=== PATIENT | female | born 1945 | race Caucasian/White ===

== ENCOUNTER 2018-04-30 18:17 | Observation (INO) ==
--- NOTE | 2018-04-30 19:21 | ED ---
HPI General Chief complaint: Chest Pain Stated complaint: chest pain/nausea Time Seen by Provider: 04/30/18 19:19 History of Present Illness HPI narrative: The patient is a 72 year old female who presents to the [facility] emergency department with a history of chest pain that began just after eating lunch at 1 PM. The pain is a pressure sensation. She has a h/o hypertension, hyperlipidemia, and diabetes. She has not checked her blood sugar today. She reports that she has been urinating more frequently, however she denies any dysuria, hematuria, or urinary urgency the patient reports that she does have a history of nausea, vomiting, and diarrhea that began at around 130 to 2 PM. She denies having any mucus or blood in her stool. She denies having any hematemesis. The patient reports on review of systems that she does have a lingering cough related to bronchitis. She reports that she was on Augmentin and a steroid taper pack recently for this. She is also on and a rescue inhaler as needed. She has a remote history of smoking as an 19-year- old. Otherwise on review of systems, the patient denies having any known fevers , however she has had chills, she denies having any neck pain, abdominal pain, or neurologic symptoms. Onset (ago): hour(s) Radiation: back Severity: severe Severity scale (1-10): 9 Quality: other (pressure sensation) Pain Consistency: intermittent Relieving factors: none Exacerbating factors: none Associated symptoms: diaphoresis, nausea/vomiting (x7), shortness of breath and other (diarrhea 1:30- 2PM- 4-5 x, stool is light brown) Related Data Home Medications Medication Instructions Recorded Confirmed aspirin [Aspirin Low Dose] 81 mg PO DAILY 04/30/18 04/30/18 celecoxib [Celebrex] 200 mg PO DAILY 04/30/18 04/30/18 cholecalciferol (vitamin D3) 5,000 unit PO DAILY 04/30/18 04/30/18 [Vitamin D3] dexlansoprazole [Dexilant] 30 mg PO DAILY 04/30/18 04/30/18 ezetimibe [Zetia] 10 mg PO DAILY 04/30/18 04/30/18 fish,bora,flax oils-[id number] 1 cap PO DAILY 04/30/18 04/30/18 [[place] 3-6-9] glimepiride 1 mg PO QAM 04/30/18 04/30/18 levalbuterol tartrate [Xopenex HFA] 2 puff INHALATION DAILY 04/30/18 04/30/18 loratadine [Claritin] 10 mg PO DAILY 04/30/18 04/30/18 losartan 25 mg PO HS 04/30/18 04/30/18 magnesium 200 mg PO DAILY 04/30/18 04/30/18 Previous Rx's Medication Instructions Recorded metoprolol succinate [Toprol XL] 100 mg PO DAILY #0 tab 05/01/18 Allergies Allergy/AdvReac Type Severity Reaction Status Date / Time heparin Allergy Severe Hypotension Verified 04/30/18 18:40 Review of Systems Except as stated in HPI: all other systems reviewed are negative Constitutional Denies fever(s) Eyes Denies change in vision ENT Denies headache(s) and Denies nasal congestion Cardiovascular Denies chest pain Respiratory Denies dyspnea Gastrointestinal Denies abdominal pain Genitourinary Denies difficulty voiding Musculoskeletal Denies myalgias Integumentary/Breasts Denies rash Neurologic Denies headache(s) Psychiatric Denies depression Endocrine Denies polyuria Hematologic/Lymphatic Denies easy bruising [facility] Medical History Medical History Cholecystectomy planned (Acute) Diabetes mellitus type II, controlled (Acute) GERD (gastroesophageal reflux disease) (Acute) H/O: hysterectomy (Acute) HTN (hypertension) (Acute) High blood cholesterol (Acute) RSD (reflex sympathetic dystrophy) (Acute) Surgical History Surgical History History of lumbar surgery (Acute) Social History Social History Substance History: No History of Abuse Second Hand Smoke Exposure: No Smoking Status: Former smoker How Often Do You Have a Drink Containing Alcohol: 2 to 4 times a month Recent Travel in [facility] within the Last 8 Weeks: No Recent Out of Country Travel within the Last 8 Weeks: No Immunization History Tetanus Immunization: <5 Years Hx Influenza Vaccine This Season: Yes Exam Const General: cooperative and no acute distress HENMT Head: normocephalic and atraumatic Nose: no nasal discharge and no epistaxis Mouth: moist mucous membranes Eyes Sclera: normal sclerae Pupils: PERRL Neck Neck: trachea midline and no JVD Resp Effort & Inspection: no use of accessory muscles Auscultation: clear to auscultation bilaterally Cardio Rate: regular rate and tachycardic Rhythm: regular rhythm Heart Sounds: no gallops, no murmurs and no rubs GI Inspection: non-distended Palpation: soft, no hepatosplenomegaly and nontender Skin General: dry skin (warm) Neuro General: alert and awake Cranial Nerves: other Speech: speech normal Motor: no movement abnormalities noted Extrem General: normal to inspection, no clubbing, no cyanosis and no edema Psych Mood: congruent mood Affect: normal affect Judgment: judgment good Course Hospital Course: During the course of the patient's emergency department visit, the patient's history, examination, and differential diagnosis were reviewed with the patient. The patient was placed on a resident services manager with oximetry and frequent blood pressure monitoring. The patient had IV access obtained and blood work sent for analysis. The patient was initially provided normal saline 1 L IV fluid bolus. The patient was given sublingual nitroglycerin 1, nitroglycerin 1 inch the chest wall, aspirin 324 mg p.o. 1. Reevaluation(s) Reevaluation #1: The patient reportedly feeling improved. She has not had any further episodes of diarrhea. Consultations Consultation #1: The patient's case including history, pertinent physical examination findings, and laboratory studies were discussed with Dr. Helms. It was agreed that the patient would be admitted to the hospitalist service. Time: 01:04 Initial Documented Vital Signs Temperature 98.4 F 04/30/18 18:24 Pulse Rate 125 H 04/30/18 18:24 Respiratory Rate 16 04/30/18 18:24 Blood Pressure 126/78 04/30/18 18:24 Pulse Oximetry 96 04/30/18 18:24 Last Documented Vital Signs Temperature 98.4 F 04/30/18 18:24 Pulse Rate 85 05/01/18 05:30 Respiratory Rate 18 05/01/18 04:40 Blood Pressure 100/51 L 05/01/18 04:40 Pulse Oximetry 94 L 05/01/18 04:40 Medical Decision Making MDM Narrative Medical decision making narrative: The patient's diagnostic testing is remarkable for a hemoglobin of 13.3, with a left shift of 92.9. D-dimer elevated at 1.81, therefore CTA to rule out PE was ordered. CMP is remarkable for total bilirubin of 2.2, direct bilirubin 0.9, glucose 200, GFR of 64, AST 270, alk phos 134, ALT 131. The patient's lipase is within normal limits. Initial set of cardiac enzymes are negative. Cardiac enzymes are within normal limits. The patient's chest x-ray showed no acute cardiopulmonary disease. CTA to rule out pulmonary embolism shows no evidence of pulmonary embolism. CT scan of the abdomen and pelvis shows no acute abnormality. The patient will be admitted to the hospitalist service for rule out serial cardiac enzyme protocol given the patient's chest pain. The patient will also be evaluated for nausea, vomiting, diarrhea, C. difficile colitis will be ruled out by C. difficile toxin given her recent antibiotic use. Differential Diagnosis Differential Diagnosis: Acute coronary syndrome, versus pulmonary embolism, versus acid reflux, versus C. difficile colitis Medical Records Medical records reviewed: Yes I reviewed the patient's medical records. Lab Data Result diagrams: 04/30/18 19:40 04/30/18 19:40 Lab Results 04/30/18 04/30/18 04/30/18 Range/Units 19:40 19:40 19:40 WBC 13.3 H (4.0-11.0) th/mm3 RBC 4.78 (4.00-5.30) mil/mm3 Hgb 15.0 (11.6-15.3) gm/dL Hct 44.9 (35.0-46.0) % MCV 93.9 (80.0-100.0) fL MCH 31.3 (27.0-34.0) pg MCHC 33.3 (32.0-36.0) % RDW 14.5 (11.6-17.2) % Plt Count 200 (150-450) th/mm3 MPV 9.3 (7.0-11.0) fL Neut % (Auto) 92.9 H (16.0-70.0) % Lymph % (Auto) 2.9 L (9.0-44.0) % [place] % (Auto) 3.9 (0.0-8.0) % Eos % (Auto) 0.1 (0.0-4.0) % Baso % (Auto) 0.2 (0.0-2.0) % Neut # (Auto) 12.3 H (1.8-7.7) th/mm3 Lymph # (Auto) 0.4 L (1.0-4.8) th/mm3 [place] # (Auto) 0.5 (0.0-0.9) th/mm3 Eos # (Auto) 0.0 (0.0-0.4) th/mm3 Baso # (Auto) 0.0 (0.0-0.2) th/mm3 WBC Differential . Differential Comment Auto diff final PT 10.4 (9.8-11.6) sec INR 1.0 Ratio APTT 25.9 (24.3-30.1) sec D-Dimer Quant (PE/DVT) 1.81 H (0.00-0.50) mg/L FEU Sodium 138 (136-145) meq/L Potassium 3.6 (3.5-5.1) meq/L Chloride 102 (98-107) meq/L Carbon Dioxide 23.1 (21.0-32.0) meq/L Anion Gap 13 (5-15) meq/L BUN 15 (7-18) mg/dL Creatinine 0.87 (0.50-1.00) mg/dL Estimated GFR 64 L (>89) mL/min Random Glucose 200 H (74-106) mg/dL Calcium 9.3 (8.5-10.1) mg/dL Magnesium 1.9 (1.5-2.5) mg/dL Total Bilirubin 1.5 H (0.2-1.0) mg/dL Direct Bilirubin (0.0-0.2) mg/dL Indirect Bilirubin (0.0-0.8) mg/dL AST 270 H (15-37) U/L ALT 131 H (10-53) U/L Alkaline Phosphatase 134 H (45-117) U/L Total Creatine Kinase 77 (26-192) U/L Troponin I Less than 0.02 L (0.02-0.05) ng/mL B-Natriuretic Peptide (0-100) pg/mL Total Protein 7.9 (6.4-8.2) g/dL Albumin 4.0 (3.4-5.0) g/dL Lipase 89 (73-393) U/L Hepatitis A IgM Ab (Nonreactive) Hep Bs Antigen (Nonreactive) Hep B Core IgM Ab (Nonreactive) Hep C IgG Ab (Nonreactive) 04/30/18 05/01/18 05/01/18 Range/Units 19:40 02:25 03:18 WBC (4.0-11.0) th/mm3 RBC (4.00-5.30) mil/mm3 Hgb (11.6-15.3) gm/dL Hct (35.0-46.0) % MCV (80.0-100.0) fL MCH (27.0-34.0) pg MCHC (32.0-36.0) % RDW (11.6-17.2) % Plt Count (150-450) th/mm3 MPV (7.0-11.0) fL Neut % (Auto) (16.0-70.0) % Lymph % (Auto) (9.0-44.0) % [place] % (Auto) (0.0-8.0) % Eos % (Auto) (0.0-4.0) % Baso % (Auto) (0.0-2.0) % Neut # (Auto) (1.8-7.7) th/mm3 Lymph # (Auto) (1.0-4.8) th/mm3 [place] # (Auto) (0.0-0.9) th/mm3 Eos # (Auto) (0.0-0.4) th/mm3 Baso # (Auto) (0.0-0.2) th/mm3 WBC Differential Differential Comment PT (9.8-11.6) sec INR Ratio APTT (24.3-30.1) sec D-Dimer Quant (PE/DVT) (0.00-0.50) mg/L FEU Sodium (136-145) meq/L Potassium (3.5-5.1) meq/L Chloride (98-107) meq/L Carbon Dioxide (21.0-32.0) meq/L Anion Gap (5-15) meq/L BUN (7-18) mg/dL Creatinine (0.50-1.00) mg/dL Estimated GFR (>89) mL/min Random Glucose (74-106) mg/dL Calcium (8.5-10.1) mg/dL Magnesium (1.5-2.5) mg/dL Total Bilirubin 2.2 H (0.2-1.0) mg/dL Direct Bilirubin 0.9 H (0.0-0.2) mg/dL Indirect Bilirubin 1.3 H (0.0-0.8) mg/dL AST (15-37) U/L ALT (10-53) U/L Alkaline Phosphatase (45-117) U/L Total Creatine Kinase 50 (26-192) U/L Troponin I Less than 0.02 L (0.02-0.05) ng/mL B-Natriuretic Peptide 17 (0-100) pg/mL Total Protein (6.4-8.2) g/dL Albumin (3.4-5.0) g/dL Lipase (73-393) U/L Hepatitis A IgM Ab Nonreactive (Nonreactive) Hep Bs Antigen Nonreactive (Nonreactive) Hep B Core IgM Ab Nonreactive (Nonreactive) Hep C IgG Ab Nonreactive (Nonreactive) Imaging Data Radiologist's impression: ITS Impressions Chest X-Ray 04/30/18 19:22 CONCLUSION: No acute cardiopulmonary disease. Chest CTA 04/30/18 22:20 CONCLUSION: 1. The study is negative for pulmonary embolism. Abdomen/Pelvis CT 04/30/18 22:21 CONCLUSION: 1. No acute findings in the abdomen/pelvis. ECG Data Attestation: I personally reviewed and interpreted this ECG as follows: Interpretation: The patient had an EKG done on arrival that shows sinus tachycardia with occasional ventricular premature complexes heart rate of 117, QRS duration is 92 ms, QTC [address] segment elevation, downsloping ST segments are noted in V1. Discharge Plan Discharge Disposition Patient Disposition: 30 Still Patient Discharge Details Discharge Problem: Chest pain, rule out acute myocardial infarction, Nausea, vomiting, and diarrhea Physicians Team ED Provider: Haylee Phillips Primary Care Provider: Primary Care Jennifer Puri Attending Provider: Flor Loera Discharge Interventions Interventions: ED Discharge Assessment Last Done: 05/01/18 04:41 Vital Signs Last Done: 04/30/18 18:32 Status ED Status: Left Department Discharge Information Discharge Date/Time: 05/01/18 04:50
[2018-04-30] MEDS ORDERED: Sod Chloride 0.9% Inj 1,000 ML IV.SIG ONE (19:43)
--- NOTE | 2018-04-30 19:47 | XR ---
EXAM DATE: 04/30/2018 7:44 PM EDT AGE/SEX: 72 years / Female INDICATIONS: Chest pain. CLINICAL DATA: This is the patient's initial encounter. Patient reports that signs and symptoms have been present for 1 day and indicates a pain score of 10/10. MEDICAL/SURGICAL HISTORY: Diabetes mellitus type II. Hypertension. Asthma. Cholecystectomy. Hysterectomy. COMPARISON: None. FINDINGS: A single AP view of the chest demonstrates the lungs to be symmetrically aerated without evidence of mass, infiltrate or effusion. The cardiomediastinal contours are unremarkable. Osseous structures a re intact. CONCLUSION: No acute cardiopulmonary disease. Electronically signed by: Moises Ayala MD 04/30/2018 7:45 PM EDT
[2018-04-30 20:18] LABS: Baso % (Auto) 0.2 % (0.0-2.0); Eos % (Auto) 0.1 % (0.0-4.0); Hematocrit 44.9 % (35.0-46.0); Lymph # (Auto) 0.4 th/mm3 (1.0-4.8); Lymph % (Auto) 2.9 % (9.0-44.0); Mean Corpuscular HGB Conc 33.3 % (32.0-36.0); Mean Corpuscular Hemoglobin 31.3 pg (27.0-34.0); Mean Corpuscular Volume 93.9 fL (80.0-100.0); Mean Platelet Volume 9.3 fL (7.0-11.0); Mono # (Auto) 0.5 th/mm3 (0.0-0.9); Mono % (Auto) 3.9 % (0.0-8.0); Neut # (Auto) 12.3 th/mm3 (1.8-7.7); Neut % (Auto) 92.9 % (16.0-70.0); Platelet Count 200 th/mm3 (150-450); Red Blood Count 4.78 mil/mm3 (4.00-5.30); Red Cell Distribution Width 14.5 % (11.6-17.2); White Blood Count 13.3 th/mm3 (4.0-11.0)
[2018-04-30 20:29] LABS: Anion Gap 13 meq/L (5-15); Aspartate Aminotransferase 270 U/L (15-37); Blood Urea Nitrogen 15 mg/dL (7-18); Calcium 9.3 mg/dL (8.5-10.1); Carbon Dioxide 23.1 meq/L (21.0-32.0); Chloride 102 meq/L (98-107); Glomerular Filtration Rate 64 mL/min (>89); Glucose,Random 200 mg/dL (74-106); Lipase 89 U/L (73-393); Magnesium 1.9 mg/dL (1.5-2.5); Potassium 3.6 meq/L (3.5-5.1); Sodium 138 meq/L (136-145)
[2018-04-30 20:30] LABS: Alanine Aminotransferase 131 U/L (10-53)
[2018-04-30 20:31] LABS: Activated Partial Thrombo Time 25.9 sec (24.3-30.1); Prothrombin Time 10.4 sec (9.8-11.6)
[2018-04-30 20:34] LABS: Alkaline Phosphatase 134 U/L (45-117); Total Protein 7.9 g/dL (6.4-8.2)
[2018-04-30 20:38] LABS: D-Dimer 1.81 mg/L FEU (0.00-0.50)
[2018-04-30 20:40] LABS: Creatine Kinase 77 U/L (26-192)
--- NOTE | 2018-04-30 21:18 | ECG ---
Date Performed: 04/30/2018 Time Performed: 18:40:48 PTAGE: 72 years EKG: SINUS TACHYCARDIA WITH OCCASIONAL VENTRICULAR PREMATURE COMPLEXES INCOMPLETE RIGHT BUNDLE B RANCH BLOCK ABNORMAL ECG NO PREVIOUS TRACING DOCTOR: Kaitlin Wick Interpretating Date/Time 04/30/2018 21:18:06
[2018-05-01] MEDS ORDERED: Temazepam 15 MG Capsule PO PRN (01:35)
[2018-05-01] MEDS ORDERED: Bisacodyl 10 MG Supp RECTAL PRN (01:35)
[2018-05-01 04:21] LABS: Creatine Kinase 50 U/L (26-192)
[2018-05-01 05:29] LABS: Hepatitits B Surface Antigen Nonreactive (Nonreactive)
[2018-05-01 05:56] LABS: Hepatitis A IgM Antibody Nonreactive (Nonreactive)
[2018-05-01] MEDS ORDERED: DEXLANSOPRAZOLE 30 MG PO SCH (09:00)
[2018-05-01] MEDS ORDERED: Non-Formulary Drug (Levalbuterol Tartrate [Xopenex Hfa] 2 PUFF) INHALATION SCH (09:00)
[2018-05-01 09:08] LABS: Creatine Kinase 50 U/L (26-192)
[2018-05-01] MEDS: Magnesium Oxide 400 MG Tablet PO SCH (09:12)
[2018-05-01] MEDS: Ezetimibe 10 MG Tablet PO SCH (09:12)
[2018-05-01] MEDS: Loratadine 10 MG Tablet PO SCH (09:12)
--- NOTE | 2018-05-01 11:36 | P.HP ---
History of Present Illness Primary Care Physician: No Primary Care Physician History of Present Illness: Patient is a 72-year-old female with past medical history of asthma, Hypertension, hyperlipidemia, diabetes newly diagnosed 3 weeks ago, reflex sympathetic dystrophy, presented to the emergency room with complaints of chest pain, nausea vomiting and diarrhea. She states that she had a sandwich at lunch time yesterday and became very nauseous and threw up and then she experienced chest pain across her chest and back right after she ate. She denied any radiation to her jaw or arm. She vomited many times yesterday. Last night around 9 PM her chest pain stopped. She also describes chest pain as a pressure-like sensation however that has resolved. She still feels nauseous but did not vomit this morning. She also complained of terrible abdominal pain/cramping throughout. She had diarrhea about half a dozen of times. She tells me that she has recently seen her poiser balance for colonoscopy because a polyp was found and was removed and she has been having diarrhea on and off. She was told that she had a "sensitive colon" and takes probiotics. She drinks socially maybe a couple of drinks over the weekend but not on a regular basis. CT abdomen and pelvis performed in the ED did not show any acute findings. CTA negative for PE Past medical history: Asthma, Hypertension, hyperlipidemia, diabetes, reflex sympathetic dystrophy Past surgical history: Left lower lumbar sympathectomy, left meniscus repair 2 , bilateral cataract surgery 2 months ago, hysterectomy, cholecystectomy around 3 years ago Social history: Quit smoking at age 19, states that she was only a social smoker. She admits to drinking a couple drinks on weekends but not on a regular basis. Family history: Mother at age 95. She had dementia pacemaker placed. She had "all sorts of medical problems". Father had mesothelioma CODE STATUS: Full - Inpatient Certification If this patient has been admitted as an Inpatient: I certify that the inpatient services were ordered in accordance with Medicare regulations governing the order. This includes certification that hospital inpatient services are reasonable and necessary and in the case of services not specified as inpatient-only under 42 CFR 419.22(n), that they are appropriately provided as inpatient services in accordance to with the 2-midnight benchmark under 43 CFR 412.3(e) Review of Systems All other systems reviewed negative except as stated in HPI [facility] - History History Provided By: Patient - Medical History Medical History: Medical History (Last Updated 04/30/18 @ 19:25 by Haylee Phillips MD) Cholecystectomy planned Diabetes mellitus type II, controlled GERD (gastroesophageal reflux disease) H/O: hysterectomy HTN (hypertension) High blood cholesterol RSD (reflex sympathetic dystrophy) - Surgical History Surgical History: Surgical History (Last Updated 04/30/18 @ 18:44 by Seema Forrest) History of lumbar surgery - Tobacco History Second Hand Smoke Exposure: No Tobacco Use In Past 30 Days: No Smoking Status: Former smoker - Alcohol History How Often Do You Have a Drink Containing Alcohol: 2 to 4 times a month - Substance Use History Substance History: No History of Abuse - Travel History Recent Travel in the [place] Within the Last 8 Weeks: No Recent Travel Out of the Country Within the Last 8 Weeks: No - Immunization History Tetanus Immunization: <5 Years Hx Influenza Vaccine This Season: Yes Medications and Allergies Active Medications: Active Medications Al Hydroxide/Mg Hydroxide (Milk Of Magnesia Liq) 30 ml PO Q12H PRN PRN Reason: Mild Constipation Aspirin (Ecotrin) 81 mg PO DAILY [facility] Last Admin: 05/01/18 09:12 Dose: 81 mg Bisacodyl (Dulcolax Supp) 10 mg RECTAL DAILY PRN PRN Reason: SEVERE CONSITIPATION Ezetimibe (Zetia) 10 mg PO DAILY [facility] Last Admin: 05/01/18 09:12 Dose: 10 mg Glimepiride (Amaryl) 1 mg PO DAILY@0800 [facility] Lactulose (Lactulose Liq) 30 ml PO DAILY PRN PRN Reason: SEVERE CONSITIPATION Loratadine (Claritin) 10 mg PO DAILY [facility] Last Admin: 05/01/18 09:12 Dose: 10 mg Losartan Potassium (Cozaar) 25 mg PO HS [facility] Magnesium Oxide (Mag-Ox) 200 mg PO DAILY [facility] Last Admin: 05/01/18 09:12 Dose: 200 mg Pantoprazole Sodium (Protonix) 40 mg PO DAILY [facility] Last Admin: 05/01/18 09:12 Dose: 40 mg Sennosides (Senokot) 17.2 mg PO Q12H PRN PRN Reason: Moderate Constipation Sodium Chloride (Ns Flush) 2 ml IV.FLUSH UNSCH PRN PRN Reason: FLUSH AFTER USING IV ACCESS Temazepam (Restoril) 15 mg PO HS PRN PRN Reason: INSOMNIA Vitamin D (Vitamin D3) 5,000 unit PO DAILY [facility] Last Admin: 05/01/18 09:12 Dose: 5,000 unit Allergies Allergy/AdvReac Type Severity Reaction Status Date / Time heparin Allergy Severe Hypotension Verified 04/30/18 18:40 Home Medications Medication Instructions Recorded Confirmed Type aspirin [Aspirin Low Dose] 81 mg PO DAILY 04/30/18 04/30/18 History celecoxib [Celebrex] 200 mg PO DAILY 04/30/18 04/30/18 History cholecalciferol (vitamin D3) 5,000 unit PO DAILY 04/30/18 04/30/18 History [Vitamin D3] dexlansoprazole [Dexilant] 30 mg PO DAILY 04/30/18 04/30/18 History ezetimibe [Zetia] 10 mg PO DAILY 04/30/18 04/30/18 History fish,bora,flax oils-om3,6,9no1 1 cap PO DAILY 04/30/18 04/30/18 History [[place] 3-6-9] glimepiride 1 mg PO QAM 04/30/18 04/30/18 History levalbuterol tartrate [Xopenex HFA] 2 puff INHALATION DAILY 04/30/18 04/30/18 History loratadine [Claritin] 10 mg PO DAILY 04/30/18 04/30/18 History losartan 25 mg PO HS 04/30/18 04/30/18 History magnesium 200 mg PO DAILY 04/30/18 04/30/18 History Exam Vital signs: Vital Signs 04/30/18 18:24 04/30/18 18:32 04/30/18 19:31 Temperature 98.4 F Pulse Rate 125 H 114 H 110 H Respiratory Rate 16 19 18 Blood Pressure 126/78 148/67 H 134/63 Blood Pressure [Left Arm] Pulse Oximetry 96 96 95 04/30/18 20:02 04/30/18 20:19 04/30/18 21:44 Temperature Pulse Rate 109 H 111 H Respiratory Rate 18 18 Blood Pressure 119/59 L 116/59 L Blood Pressure [Left Arm] 136/62 Pulse Oximetry 94 L 94 L 05/01/18 04:04 05/01/18 04:40 05/01/18 05:30 Temperature Pulse Rate 82 85 Respiratory Rate 18 Blood Pressure 100/51 L Blood Pressure [Left Arm] Pulse Oximetry 94 L 94 L 07/04/18 09:21 05/01/18 10:13 Temperature 98.1 F Pulse Rate 86 88 Respiratory Rate 20 Blood Pressure 104/53 L Blood Pressure [Left Arm] Pulse Oximetry 96 Intake & Output 04/30/18 05/01/18 05/01/18 18:59 06:59 18:59 Intake Total 1000 / 1000 Balance 1000 / 1000 Weight 85.275 kg Intake: IV 1000 / 1000 Narrative: GENERAL: Pleasant, laying in bed appears comfortable. SKIN: Warm and dry. HEAD: Atraumatic. Normocephalic. EYES: Extraocular motion intact ENT: No nasal discharge. Mucous membranes pink and moist. NECK: Trachea midline. CARDIOVASCULAR: Regular rate and rhythm. RESPIRATORY: No accessory muscle use. Clear to auscultation. Breath sounds equal bilaterally. GASTROINTESTINAL: Abdomen soft, non-tender at this time, nondistended. No guarding or rebound. MUSCULOSKELETAL: Extremities without edema. No obvious deformities. NEUROLOGICAL: Awake and alert. Moves extremities with no difficulty. Able to walk from her room to the bathroom. PSYCHIATRIC: Appropriate mood and affect; insight and judgment normal. Results - Labs CBC & Chem 7: 04/30/18 19:40 04/30/18 19:40 Labs: Laboratory Results - last 24 hr 04/30/18 04/30/18 04/30/18 19:40 19:40 19:40 WBC 13.3 H RBC 4.78 Hgb 15.0 Hct 44.9 MCV 93.9 MCH 31.3 MCHC 33.3 RDW 14.5 Plt Count 200 MPV 9.3 Neut % (Auto) 92.9 H Lymph % (Auto) 2.9 L [place] % (Auto) 3.9 Eos % (Auto) 0.1 Baso % (Auto) 0.2 Neut # (Auto) 12.3 H Lymph # (Auto) 0.4 L [place] # (Auto) 0.5 Eos # (Auto) 0.0 Baso # (Auto) 0.0 WBC Differential . Differential Comment Auto diff final PT 10.4 INR 1.0 APTT 25.9 D-Dimer Quant (PE/DVT) 1.81 H Sodium 138 Potassium 3.6 Chloride 102 Carbon Dioxide 23.1 Anion Gap 13 BUN 15 Creatinine 0.87 Estimated GFR 64 L Random Glucose 200 H Calcium 9.3 Magnesium 1.9 Total Bilirubin 1.5 H Direct Bilirubin Indirect Bilirubin AST 270 H ALT 131 H Alkaline Phosphatase 134 H Total Creatine Kinase 77 Troponin I Less than 0.02 L B-Natriuretic Peptide Total Protein 7.9 Albumin 4.0 Lipase 89 Hepatitis A IgM Ab Hep Bs Antigen Hep B Core IgM Ab Hep C IgG Ab 04/30/18 05/01/18 05/01/18 19:40 02:25 03:18 WBC RBC Hgb Hct MCV MCH MCHC RDW Plt Count MPV Neut % (Auto) Lymph % (Auto) [place] % (Auto) Eos % (Auto) Baso % (Auto) Neut # (Auto) Lymph # (Auto) [place] # (Auto) Eos # (Auto) Baso # (Auto) WBC Differential Differential Comment PT INR APTT D-Dimer Quant (PE/DVT) Sodium Potassium Chloride Carbon Dioxide Anion Gap BUN Creatinine Estimated GFR Random Glucose Calcium Magnesium Total Bilirubin 2.2 H Direct Bilirubin 0.9 H Indirect Bilirubin 1.3 H AST ALT Alkaline Phosphatase Total Creatine Kinase 50 Troponin I Less than 0.02 L B-Natriuretic Peptide 17 Total Protein Albumin Lipase Hepatitis A IgM Ab Nonreactive Hep Bs Antigen Nonreactive Hep B Core IgM Ab Nonreactive Hep C IgG Ab Nonreactive 05/01/18 08:04 WBC RBC Hgb Hct MCV MCH MCHC RDW Plt Count MPV Neut % (Auto) Lymph % (Auto) [place] % (Auto) Eos % (Auto) Baso % (Auto) Neut # (Auto) Lymph # (Auto) [place] # (Auto) Eos # (Auto) Baso # (Auto) WBC Differential Differential Comment PT INR APTT D-Dimer Quant (PE/DVT) Sodium Potassium Chloride Carbon Dioxide Anion Gap BUN Creatinine Estimated GFR Random Glucose Calcium Magnesium Total Bilirubin Direct Bilirubin Indirect Bilirubin AST ALT Alkaline Phosphatase Total Creatine Kinase 50 Troponin I Less than 0.02 L B-Natriuretic Peptide Total Protein Albumin Lipase Hepatitis A IgM Ab Hep Bs Antigen Hep B Core IgM Ab Hep C IgG Ab - Imaging Impressions Chest X-Ray 04/30/18 19:22 CONCLUSION: No acute cardiopulmonary disease. Chest CTA 04/30/18 22:20 CONCLUSION: 1. The study is negative for pulmonary embolism. Abdomen/Pelvis CT 04/30/18 22:21 CONCLUSION: 1. No acute findings in the abdomen/pelvis. Caprini VTE Risk Assessment Caprini VTE Risk Assessment: Moderate/High Risk (score >= 2) Caprini Risk Assessment Model: Point Value = 1 Point Value = 2 Point Value = 3 Point Value = 5 Age 41-60 Minor surgery BMI > 25 kg/m2 Swollen legs Varicose veins or History of unexplained or recurrent spontaneous Oral contraceptives or hormone replacement Sepsis (< 1 month) Serious lung disease, including pneumonia (< 1 month) Abnormal pulmonary function Acute myocardial infarction Congestive heart failure (< 1 month) History of inflammatory bowel disease Medical patient at bed rest Age 61-74 Arthroscopic surgery Major open surgery (> 45 min) Laparoscopic surgery (> 45 min) Malignancy Confined to bed (> 72 hours) Immobilizing plaster cast Central venous access Age >= 75 History of VTE Family history of VTE Factor V Leiden Prothrombin [id number] Lupus anticoagulant Anticardiolipin antibodies Elevated serum homocysteine Heparin-induced thrombocytopenia Other congenital or acquired thrombophilia Stroke (< 1 month) Elective arthroplasty Hip, pelvis, or leg fracture Acute spinal cord injury (< 1 month) Prophylaxis Regimen: Total Risk Factor Score Risk Level Prophylaxis Regimen 0-1 Low Early ambulation 2 Moderate Order ONE of the following: *Sequential Compression Device (SCD) *Heparin 5000 units SQ BID 3-4 Higher Order ONE of the following medications: *Heparin 5000 units SQ TID *Enoxaparin/Lovenox 40 mg SQ daily (WT < 150 kg, CrCl > 30 mL/min) *Enoxaparin/Lovenox 30 mg SQ daily (WT < 150 kg, CrCl > 10-29 mL/min) *Enoxaparin/Lovenox 30 mg SQ BID (WT < 150 kg, CrCl > 30 mL/min) AND/OR *Sequential Compression Device (SCD) 5 or more Highest Order ONE of the following medications: *Heparin 5000 units SQ TID (Preferred with Epidurals) *Enoxaparin/Lovenox 40 mg SQ daily (WT < 150 kg, CrCl > 30 mL/min) *Enoxaparin/Lovenox 30 mg SQ daily (WT < 150 kg, CrCl > 10-29 mL/min) *Enoxaparin/Lovenox 30 mg SQ BID (WT < 150 kg, CrCl > 30 mL/min) AND *Sequential Compression Device (SCD) Assessment and Plan - Plan 72-year-old female presenting with Chest pain across her chest and back: CTA negative for PE. Patient received a dose of aspirin and nitroglycerin and in the ED. continue aspirin daily. Serial troponin has been negative. Performed stress test in the morning. If abnormal will consult cardiology. Abdominal pain/nausea/vomiting/diarrhea: CT abdomen pelvis was negative. LFTs were found to be elevated and patient states that she had a cholecystectomy about 3 years ago. AST 270, ALT 131, T bili 2.2. Will get a GI consult for further evaluation and recommendations. Patient states that she has had diarrhea on and off however this time it was perfused. She states she was treated 2 months ago for 2 different bouts of bronchitis for which she was treated with antibiotics and steroids on both occasions. Will check C. difficile and stool studies. Repeat CMP in AM. zofran prn and reglan prn n/v Pt's other chronic medical conditions: home meds have been resumed. Monitor both BPs and BS's. Started pt on ISS low dose. prn vasotec added
[2018-05-01] MEDS ORDERED: Dextrose 50% in Water 50 ML Vial IV.PUSH PRN (11:51)
[2018-05-01] MEDS: Insulin NovoLOG Aspart Correctional Sugar Inj SQ SCH ×3 (12:45→21:18)
--- NOTE | 2018-05-01 13:27 | P.CONGI ---
History of Present Illness Consult date: 05/01/18 Chief complaint: CP r/o ACS, Vomiting and Diarrhea History of Present Illness: Patient is a 72-year-old female with past medical history of choledocholithiasis , asthma, Hypertension, hyperlipidemia, newly diagnosed diabetes presented to the emergency room with complaints of chest pain, nausea vomiting and diarrhea. This started yesterday after eating a sandwich at lunch time. She had several episodes of emesis with no hematemesis. She severe abdominal pain yesterday but resolved. Endorses fever and chills. Endorses diarrhea as well but not melena or hematemesis. Pt is visiting here, was seen by her clinic receptionist and under went several colonoscopies last yr for a polyp. She was told that she had IBS for which she takes probiotics. She drinks socially maybe a couple of drinks over the weekend but not on a regular basis. Pt with hx of choledocholithiasis discovered during cholecystectomy 3 yrs ago. On admission, AST 270, ALT 131, ALP 134, bilit 1.6. Lipase wnl. CT abdomen and pelvis performed in the ED did not show any acute findings. CTA negative for PE <Ludivina Larson - Last Filed: 05/05/18 23:35> Review of Systems All other systems reviewed negative except as stated in HPI <Ludivina Larson - Last Filed: 05/05/18 23:35> PMFSH - Medical History Medical History: Medical History (Last Updated 04/30/18 @ 19:25 by Haylee Phillips MD) Cholecystectomy planned Diabetes mellitus type II, controlled GERD (gastroesophageal reflux disease) H/O: hysterectomy HTN (hypertension) High blood cholesterol RSD (reflex sympathetic dystrophy) - Surgical History Surgical History: Surgical History (Last Updated 04/30/18 @ 18:44 by Seema Forrest) History of lumbar surgery <Carol Tubbs - Last Filed: 05/01/18 20:55> - History History Provided By: Patient - Medical History Medical History: Medical History (Last Updated 04/30/18 @ 19:25 by Haylee Phillips MD) Cholecystectomy planned Diabetes mellitus type II, controlled GERD (gastroesophageal reflux disease) H/O: hysterectomy HTN (hypertension) High blood cholesterol RSD (reflex sympathetic dystrophy) - Surgical History Surgical History: Surgical History (Last Updated 04/30/18 @ 18:44 by Seema Forrest) History of lumbar surgery - Tobacco History Second Hand Smoke Exposure: No Tobacco Use In Past 30 Days: No Smoking Status: Former smoker - Alcohol History How Often Do You Have a Drink Containing Alcohol: 2 to 4 times a month - Substance Use History Substance History: No History of Abuse - Travel History Recent Travel in the [place] Within the Last 8 Weeks: No Recent Travel Out of the Country Within the Last 8 Weeks: No - Immunization History Tetanus Immunization: <5 Years Hx Influenza Vaccine This Season: Yes <Ludivina Larson - Last Filed: 05/05/18 23:35> Medications and Allergies Active Medications: Active Medications Al Hydroxide/Mg Hydroxide (Milk Of Magnesia Liq) 30 ml PO Q12H PRN PRN Reason: Mild Constipation Aspirin (Ecotrin) 81 mg PO DAILY [facility] Last Admin: 05/01/18 09:12 Dose: 81 mg Bisacodyl (Dulcolax Supp) 10 mg RECTAL DAILY PRN PRN Reason: SEVERE CONSITIPATION Dextrose (D50w Vial) 50 ml IV.PUSH UNSCH PRN PRN Reason: PER HYPOGLYCEMIA PROTOCOL Ezetimibe (Zetia) 10 mg PO DAILY [facility] Last Admin: 05/01/18 09:12 Dose: 10 mg Enalaprilat (Vasotec Inj) 1.25 mg IV.PUSH Q6H PRN PRN Reason: SBP>160, DBP>90 Glimepiride (Amaryl) 1 mg PO DAILY@0800 [facility] Glucagon (Glucagon Inj) 1 mg OTHER PRN PRN PRN Reason: for Hypoglycemia Protocol Insulin Aspart (Novolog Insulin Suppl Scale Inj) 1 unit SQ [facility]; Protocol Last Admin: 05/01/18 17:18 Dose: Not Given Lactulose (Lactulose Liq) 30 ml PO DAILY PRN PRN Reason: SEVERE CONSITIPATION Loratadine (Claritin) 10 mg PO DAILY [facility] Last Admin: 05/01/18 09:12 Dose: 10 mg Losartan Potassium (Cozaar) 25 mg PO HS [facility] Magnesium Oxide (Mag-Ox) 200 mg PO DAILY [facility] Last Admin: 05/01/18 09:12 Dose: 200 mg Metoclopramide HCl (Reglan Inj) 5 mg IV.PUSH Q8HR PRN; Protocol PRN Reason: NAUSEA OR VOMITING Ondansetron HCl (Zofran Inj) 4 mg IV.PUSH Q6H PRN PRN Reason: NAUSEA OR VOMITING Pantoprazole Sodium (Protonix) 40 mg PO DAILY [facility] Last Admin: 05/01/18 09:12 Dose: 40 mg Sennosides (Senokot) 17.2 mg PO Q12H PRN PRN Reason: Moderate Constipation Sodium Chloride (Ns Flush) 2 ml IV.FLUSH UNSCH PRN PRN Reason: FLUSH AFTER USING IV ACCESS Temazepam (Restoril) 15 mg PO HS PRN PRN Reason: INSOMNIA Vitamin D (Vitamin D3) 5,000 unit PO DAILY [facility] Last Admin: 05/01/18 09:12 Dose: 5,000 unit <Carol Tubbs - Last Filed: 05/01/18 20:55> Active Medications: Active Medications Al Hydroxide/Mg Hydroxide (Milk Of Magnesia Liq) 30 ml PO Q12H PRN PRN Reason: Mild Constipation Aspirin (Ecotrin) 81 mg PO DAILY [facility] Last Admin: 05/01/18 09:12 Dose: 81 mg Bisacodyl (Dulcolax Supp) 10 mg RECTAL DAILY PRN PRN Reason: SEVERE CONSITIPATION Dextrose (D50w Vial) 50 ml IV.PUSH UNSCH PRN PRN Reason: PER HYPOGLYCEMIA PROTOCOL Ezetimibe (Zetia) 10 mg PO DAILY [facility] Last Admin: 05/01/18 09:12 Dose: 10 mg Enalaprilat (Vasotec Inj) 1.25 mg IV.PUSH Q6H PRN PRN Reason: SBP>160, DBP>90 Glimepiride (Amaryl) 1 mg PO DAILY@0800 [facility] Glucagon (Glucagon Inj) 1 mg OTHER PRN PRN PRN Reason: for Hypoglycemia Protocol Insulin Aspart (Novolog Insulin Suppl Scale Inj) 1 unit SQ [facility]; Protocol Last Admin: 05/01/18 12:45 Dose: Not Given Lactulose (Lactulose Liq) 30 ml PO DAILY PRN PRN Reason: SEVERE CONSITIPATION Loratadine (Claritin) 10 mg PO DAILY [facility] Last Admin: 05/01/18 09:12 Dose: 10 mg Losartan Potassium (Cozaar) 25 mg PO HS [facility] Magnesium Oxide (Mag-Ox) 200 mg PO DAILY [facility] Last Admin: 05/01/18 09:12 Dose: 200 mg Metoclopramide HCl (Reglan Inj) 5 mg IV.PUSH Q8HR PRN; Protocol PRN Reason: NAUSEA OR VOMITING Ondansetron HCl (Zofran Inj) 4 mg IV.PUSH Q6H PRN PRN Reason: NAUSEA OR VOMITING Pantoprazole Sodium (Protonix) 40 mg PO DAILY [facility] Last Admin: 05/01/18 09:12 Dose: 40 mg Sennosides (Senokot) 17.2 mg PO Q12H PRN PRN Reason: Moderate Constipation Sodium Chloride (Ns Flush) 2 ml IV.FLUSH UNSCH PRN PRN Reason: FLUSH AFTER USING IV ACCESS Temazepam (Restoril) 15 mg PO HS PRN PRN Reason: INSOMNIA Vitamin D (Vitamin D3) 5,000 unit PO DAILY [facility] Last Admin: 05/01/18 09:12 Dose: 5,000 unit <Ludivina Larson - Last Filed: 05/05/18 23:35> Allergies Allergy/AdvReac Type Severity Reaction Status Date / Time heparin Allergy Severe Hypotension Verified 04/30/18 18:40 Home Medications Medication Instructions Recorded Confirmed Type aspirin [Aspirin Low Dose] 81 mg PO DAILY 04/30/18 04/30/18 History celecoxib [Celebrex] 200 mg PO DAILY 04/30/18 04/30/18 History cholecalciferol (vitamin D3) 5,000 unit PO DAILY 04/30/18 04/30/18 History [Vitamin D3] dexlansoprazole [Dexilant] 30 mg PO DAILY 04/30/18 04/30/18 History ezetimibe [Zetia] 10 mg PO DAILY 04/30/18 04/30/18 History fish,bora,flax oils-[id number] 1 cap PO DAILY 04/30/18 04/30/18 History [[place] 3-6-9] glimepiride 1 mg PO QAM 04/30/18 04/30/18 History levalbuterol tartrate [Xopenex HFA] 2 puff INHALATION DAILY 04/30/18 04/30/18 History loratadine [Claritin] 10 mg PO DAILY 04/30/18 04/30/18 History losartan 25 mg PO HS 04/30/18 04/30/18 History magnesium 200 mg PO DAILY 04/30/18 04/30/18 History Exam Vital signs: Vital Signs 04/30/18 21:44 05/01/18 04:04 07/04/18 04:40 Temperature Pulse Rate 111 H 82 Respiratory Rate 18 18 Blood Pressure 116/59 L 100/51 L Pulse Oximetry 94 L 94 L 94 L 05/01/18 05:30 05/01/18 09:21 05/01/18 10:13 Temperature 98.1 F Pulse Rate 85 86 88 Respiratory Rate 20 Blood Pressure 104/53 L Pulse Oximetry 96 05/01/18 12:51 05/01/18 16:24 05/01/18 18:18 Temperature 98.1 F 98.1 F Pulse Rate 93 H 84 Respiratory Rate 20 20 Blood Pressure 131/68 113/59 L Pulse Oximetry 94 L 84 L 94 L 05/01/18 20:00 Temperature 98.7 F Pulse Rate 90 Respiratory Rate 16 Blood Pressure 123/68 Pulse Oximetry 92 L Intake & Output 05/01/18 05/01/18 05/02/18 06:59 18:59 06:59 Intake Total 1000 / 1000 200 / 200 Balance 1000 / 1000 200 / 200 Intake: IV 1000 / 1000 Oral 200 / 200 <Carol Tubbs - Last Filed: 05/01/18 20:55> Vital signs: Vital Signs 04/30/18 18:24 04/30/18 18:32 04/30/18 19:31 Temperature 98.4 F Pulse Rate 125 H 114 H 110 H Respiratory Rate 16 19 18 Blood Pressure 126/78 148/67 H 134/63 Blood Pressure [Left Arm] Pulse Oximetry 96 96 95 04/30/18 20:02 04/30/18 20:19 04/30/18 21:44 Temperature Pulse Rate 109 H 111 H Respiratory Rate 18 18 Blood Pressure 119/59 L 116/59 L Blood Pressure [Left Arm] 136/62 Pulse Oximetry 94 L 94 L 05/01/18 04:04 05/01/18 04:40 05/01/18 05:30 Temperature Pulse Rate 82 85 Respiratory Rate 18 Blood Pressure 100/51 L Blood Pressure [Left Arm] Pulse Oximetry 94 L 94 L 05/01/18 09:21 05/01/18 10:13 05/01/18 12:51 Temperature 98.1 F 98.1 F Pulse Rate 86 88 93 H Respiratory Rate 20 20 Blood Pressure 104/53 L 131/68 Blood Pressure [Left Arm] Pulse Oximetry 96 94 L Intake & Output 04/30/18 05/01/18 05/01/18 18:59 06:59 18:59 Intake Total 1000 / 1000 Balance 1000 / 1000 Weight 85.275 kg Intake: IV 1000 / 1000 - Constitutional no acute distress - Routine HEENT Exam Head: Present: normocephalic ENT: Present: mucous membranes moist - Routine Neck Exam Present: supple - Routine Respiratory Exam Present: CTA bilaterally. Absent: respiratory distress - Routine Cardiovascular Exam Present: RRR - Routine Abdominal Exam Present: soft, normoactive bowel sounds. Absent: tenderness, distended - Routine Extremities Exam Absent: cyanosis, clubbing - Routine Skin Exam Absent: jaundice - Routine Neurological Exam Present: alert, oriented X3 <RubichecoLudivina - Last Filed: 05/05/18 23:35> Results - Labs CBC & Chem 7: 04/30/18 19:40 04/30/18 19:40 Labs: Laboratory Results - last 24 hr 04/30/18 05/01/18 05/01/18 19:40 02:25 03:18 POC Glucose Total Bilirubin 2.2 H Direct Bilirubin 0.9 H Indirect Bilirubin 1.3 H Total Creatine Kinase 50 Troponin I Less than 0.02 L B-Natriuretic Peptide 17 Hepatitis A IgM Ab Nonreactive Hep Bs Antigen Nonreactive Hep B Core IgM Ab Nonreactive Hep C IgG Ab Nonreactive 05/01/18 05/01/18 05/01/18 08:04 12:25 14:10 POC Glucose 111 H Total Bilirubin Direct Bilirubin Indirect Bilirubin Total Creatine Kinase 50 57 Troponin I Less than 0.02 L Less than 0.02 L B-Natriuretic Peptide Hepatitis A IgM Ab Hep Bs Antigen Hep B Core IgM Ab Hep C IgG Ab 05/01/18 17:13 POC Glucose 109 Total Bilirubin Direct Bilirubin Indirect Bilirubin Total Creatine Kinase Troponin I B-Natriuretic Peptide Hepatitis A IgM Ab Hep Bs Antigen Hep B Core IgM Ab Hep C IgG Ab - Imaging Impressions Chest CTA 04/30/18 22:20 CONCLUSION: 1. The study is negative for pulmonary embolism. Abdomen/Pelvis CT 04/30/18 22:21 CONCLUSION: 1. No acute findings in the abdomen/pelvis. <Carol Tubbs - Last Filed: 05/01/18 20:55> - Labs CBC & Chem 7: 05/02/18 04:45 05/02/18 16:24 Labs: Laboratory Results - last 24 hr 04/30/18 04/30/18 04/30/18 19:40 19:40 19:40 WBC 13.3 H RBC 4.78 Hgb 15.0 Hct 44.9 MCV 93.9 MCH 31.3 MCHC 33.3 RDW 14.5 Plt Count 200 MPV 9.3 Neut % (Auto) 92.9 H Lymph % (Auto) 2.9 L [place] % (Auto) 3.9 Eos % (Auto) 0.1 Baso % (Auto) 0.2 Neut # (Auto) 12.3 H Lymph # (Auto) 0.4 L [place] # (Auto) 0.5 Eos # (Auto) 0.0 Baso # (Auto) 0.0 WBC Differential . Differential Comment Auto diff final PT 10.4 INR 1.0 APTT 25.9 D-Dimer Quant (PE/DVT) 1.81 H Sodium 138 Potassium 3.6 Chloride 102 Carbon Dioxide 23.1 Anion Gap 13 BUN 15 Creatinine 0.87 Estimated GFR 64 L POC Glucose Random Glucose 200 H Calcium 9.3 Magnesium 1.9 Total Bilirubin 1.5 H Direct Bilirubin Indirect Bilirubin AST 270 H ALT 131 H Alkaline Phosphatase 134 H Total Creatine Kinase 77 Troponin I Less than 0.02 L B-Natriuretic Peptide Total Protein 7.9 Albumin 4.0 Lipase 89 Hepatitis A IgM Ab Hep Bs Antigen Hep B Core IgM Ab Hep C IgG Ab 04/30/18 05/01/18 05/01/18 19:40 02:25 03:18 WBC RBC Hgb Hct MCV MCH MCHC RDW Plt Count MPV Neut % (Auto) Lymph % (Auto) [place] % (Auto) Eos % (Auto) Baso % (Auto) Neut # (Auto) Lymph # (Auto) [place] # (Auto) Eos # (Auto) Baso # (Auto) WBC Differential Differential Comment PT INR APTT D-Dimer Quant (PE/DVT) Sodium Potassium Chloride Carbon Dioxide Anion Gap BUN Creatinine Estimated GFR POC Glucose Random Glucose Calcium Magnesium Total Bilirubin 2.2 H Direct Bilirubin 0.9 H Indirect Bilirubin 1.3 H AST ALT Alkaline Phosphatase Total Creatine Kinase 50 Troponin I Less than 0.02 L B-Natriuretic Peptide 17 Total Protein Albumin Lipase Hepatitis A IgM Ab Nonreactive Hep Bs Antigen Nonreactive Hep B Core IgM Ab Nonreactive Hep C IgG Ab Nonreactive 05/01/18 05/01/18 08:04 12:25 WBC RBC Hgb Hct MCV MCH MCHC RDW Plt Count MPV Neut % (Auto) Lymph % (Auto) [place] % (Auto) Eos % (Auto) Baso % (Auto) Neut # (Auto) Lymph # (Auto) [place] # (Auto) Eos # (Auto) Baso # (Auto) WBC Differential Differential Comment PT INR APTT D-Dimer Quant (PE/DVT) Sodium Potassium Chloride Carbon Dioxide Anion Gap BUN Creatinine Estimated GFR POC Glucose 111 H Random Glucose Calcium Magnesium Total Bilirubin Direct Bilirubin Indirect Bilirubin AST ALT Alkaline Phosphatase Total Creatine Kinase 50 Troponin I Less than 0.02 L B-Natriuretic Peptide Total Protein Albumin Lipase Hepatitis A IgM Ab Hep Bs Antigen Hep B Core IgM Ab Hep C IgG Ab - Imaging Impressions Chest X-Ray 04/30/18 19:22 CONCLUSION: No acute cardiopulmonary disease. Chest CTA 04/30/18 22:20 CONCLUSION: 1. The study is negative for pulmonary embolism. Abdomen/Pelvis CT 04/30/18 22:21 CONCLUSION: 1. No acute findings in the abdomen/pelvis. <Ludivina Larson - Last Filed: 05/05/18 23:35> Assessment and Plan - Attending Attestation seen, examined agree with above <Carol Tubbs - Last Filed: 05/01/18 20:55> - Plan - Nausea, vomiting, diarrhea/ abd pain- This started yesterday after eating a sandwich at lunch time. She had several episodes of emesis with no hematemesis. She severe abdominal pain yesterday but resolved. Endorses fever and chills. Endorses diarrhea as well but not melena or hematemesis. Pt is visiting here, was seen by her clinic receptionist and under went several colonoscopies last yr for a polyp. She was told that she had IBS for which she takes probiotics. She drinks socially maybe a couple of drinks over the weekend but not on a regular basis. Pt with hx of choledocholithiasis discovered during cholecystectomy 3 yrs ago. On admission, AST 270, ALT 131, ALP 134, bilit 1.6. Lipase wnl. Hepatitis panel negative. CT abdomen and pelvis performed in the ED did not show any acute findings. CTA negative for PE - Diarrhea- stool studies pending, pt hasn't had any today - Hx of asthma, Hypertension, hyperlipidemia, newly diagnosed diabetes per attending Plan: - MRCP today to r/o cbd stones - Monitor labs - Await stools studies - Supportive care -Pt seen and examined by Dr. Tubbs and myself and this note is written on her behalf. <Ludivina Larson - Last Filed: 05/05/18 23:35>
[2018-05-01 15:03] LABS: Creatine Kinase 57 U/L (26-192)
[2018-05-02 06:21] LABS: Baso % (Auto) 0.8 % (0.0-2.0); Eos # (Auto) 0.3 th/mm3 (0.0-0.4); Eos % (Auto) 5.9 % (0.0-4.0); Hematocrit 39.3 % (35.0-46.0); Hemoglobin 13.1 gm/dL (11.6-15.3); Lymph % (Auto) 19.1 % (9.0-44.0); Mean Corpuscular HGB Conc 33.3 % (32.0-36.0); Mean Corpuscular Hemoglobin 31.9 pg (27.0-34.0); Mean Corpuscular Volume 95.7 fL (80.0-100.0); Mean Platelet Volume 8.9 fL (7.0-11.0); Mono # (Auto) 0.5 th/mm3 (0.0-0.9); Mono % (Auto) 9.4 % (0.0-8.0); Neut # (Auto) 3.4 th/mm3 (1.8-7.7); Neut % (Auto) 64.8 % (16.0-70.0); Platelet Count 180 th/mm3 (150-450); Red Cell Distribution Width 14.9 % (11.6-17.2); White Blood Count 5.3 th/mm3 (4.0-11.0)
[2018-05-02 07:04] LABS: Alanine Aminotransferase 130 U/L (10-53); Albumin 3.1 g/dL (3.4-5.0); Alkaline Phosphatase 116 U/L (45-117); Anion Gap 10 meq/L (5-15); Aspartate Aminotransferase 121 U/L (15-37); Blood Urea Nitrogen 13 mg/dL (7-18); Calcium 9.1 mg/dL (8.5-10.1); Carbon Dioxide 28.3 meq/L (21.0-32.0); Chloride 104 meq/L (98-107); Glomerular Filtration Rate 73 mL/min (>89); Glucose,Random 148 mg/dL (74-106); Potassium 3.4 meq/L (3.5-5.1); Sodium 142 meq/L (136-145); Total Protein 6.7 g/dL (6.4-8.2)
[2018-05-02] MEDS ORDERED: Glimepiride 1 MG Tablet PO SCH (08:00)
[2018-05-02] MEDS: Loratadine 10 MG Tablet PO SCH (08:04)
[2018-05-02] MEDS: Magnesium Oxide 400 MG Tablet PO SCH (08:04)
[2018-05-02] MEDS: Ezetimibe 10 MG Tablet PO SCH (08:04)
[2018-05-02] MEDS: Insulin NovoLOG Aspart Correctional Sugar Inj SQ SCH ×3 (08:33→18:14)
--- NOTE | 2018-05-02 09:30 | MR ---
EXAM DATE: 05/02/2018 9:21 AM EDT AGE/SEX: 72 years / Female INDICATIONS: Abdominal pain. Nausea and vomiting. CLINICAL DATA: This is the patient's subsequent encounter. Patient reports that signs and symptoms h ave been present for 2 days and indicates a pain score of 3/10. MEDICAL/SURGICAL HISTORY: Diabetes. Gastroesophageal reflux disease. Cholelithiasis. Hysterec deon. Discectomy, lumbar. Cholecystectomy. [place] [facility] [place]AST[place]/30/2018. . TECHNIQUE: Multiplanar, multisequence images of the abdomen were obtained without contrast including dedicated cholangiographic images. FINDINGS: Liver: The liver is homogeneous and normal in signal intensity with no focal defects. There is a 9 m m cyst in the right lobe of the liver. Intrahepatic Bile Ducts: There is no intrahepatic biliary ductal dilatation. Common Bile Duct: The common bile duct is normal in caliber for a patient who is status post a jose j cystectomy. The common bile duct measures approximately 1 cm. No filling defects or obstructing lesio ns are identified. Gallbladder: Surgically removed Pancreas: The pancreas appears normal in signal with no focal parenchymal abnormalities. The pancrea tic duct is normal in caliber with no filling defects, or obstructing lesions identified. CONCLUSION: 1. Unremarkable examination in this patient who is status post cholecystectomy. The common bile duct measures approximately 1 cm which is most likely reservoir effect. No definite biliary tract obstruc tion is demonstrated. Electronically signed by: Bogdan Jay MD 05/02/2018 9:28 AM EDT
[2018-05-02] MEDS ORDERED: Potassium Chloride 10 MEQ ER Capsule PO ONE (09:46)
--- NOTE | 2018-05-02 11:58 | P.PN ---
Subjective Interval history: Follow-up visit chest pain, abdominal pain, nausea, vomiting, HTN, HLD, DM. Patient seen and examined today. at the bedside. Reports she is doing a lot better. She still has some nausea on and off however has been controlled by Zofran. States he has not eaten yet. Discussed with patient results of MRCP. States he has no more diarrhea. Patient reports and reports that her elevated liver enzymes has been happening every time the switch over her cholesterol medications. Originally from [place], states that when they were in [place] and have put her on Crestor her enzymes went up, she has the same exact presentation of nausea vomiting diarrhea. Recently her doctor put her on Zetia and she was doing well until few days of taking the medications that she has elevated liver enzymes, nausea vomiting. They also found she has diabetes. She has been borderline for a while and states that her PCP has been monitoring her cholesterol and her blood sugars and that she is actually going every 3 months for blood work. States that she was previously on medication for her cholesterol, sequestrant. But was transitioned to Zetia. States that her lipid profile has been okay but since she was diagnosed with diabetes 3 weeks ago her doctor put her on Zetia as a precaution for her cholesterol. Occasional CP felt, comes and goes. Otherwise, denies pain and discomfort. Denies SOB/ dyspnea. Denies palpitations, headaches, dizziness. Denies fevers, chills. Denies hematuria, dysuria. Physical Exam Vital signs: Vital Signs 05/01/18 12:51 05/01/18 16:24 05/01/18 18:18 Temperature 98.1 F 98.1 F Pulse Rate 93 H 84 Respiratory Rate 20 20 Blood Pressure 131/68 113/59 L Pulse Oximetry 94 L 84 L 94 L 05/01/18 20:00 05/01/18 23:51 05/02/18 00:10 Temperature 98.7 F 98.8 F Pulse Rate 84 78 76 Respiratory Rate 16 16 Blood Pressure 123/68 104/56 L Pulse Oximetry 92 L 94 L 05/02/18 03:30 05/02/18 03:48 05/02/18 08:23 Temperature 98.7 F 97.9 F Pulse Rate 79 86 78 Respiratory Rate 16 14 Blood Pressure 116/62 132/65 Pulse Oximetry 93 L 95 05/02/18 11:03 Temperature Pulse Rate 87 Respiratory Rate Blood Pressure Pulse Oximetry Intake & Output 05/01/18 05/02/18 05/02/18 18:59 06:59 18:59 Intake Total 200 / 200 480 / 480 Balance 200 / 200 480 / 480 Intake: Oral 200 / 200 480 / 480 Other: # Voids 2 Narrative: GENERAL: This is a well-nourished, well-developed patient, in no apparent distress. SKIN: Warm and dry. HEENT: Normocephalic. Pupils equal round and reactive. Nose without bleeding. Airway patent. NECK: Trachea midline. No JVD. Supple. CARDIOVASCULAR: Regular rate and rhythm without murmurs, gallops, or rubs. RESPIRATORY: Clear to auscultation. Breath sounds equal bilaterally. No wheezes , rales, or rhonchi. GASTROINTESTINAL: Abdomen soft, non-tender, nondistended. Bowel Sounds normoactive x4. MUSCULOSKELETAL: Extremities without clubbing, cyanosis, or edema. NEUROLOGICAL: Awake and alert. Oriented to time, place, person. No focal neuro deficit. Moves all extremities. Normal speech. Results - Labs CBC & Chem 7: 05/02/18 04:45 05/02/18 16:24 Laboratory Results - last 24 hr 05/01/18 05/01/18 05/01/18 12:25 14:10 17:13 WBC RBC Hgb Hct MCV MCH MCHC RDW Plt Count MPV Neut % (Auto) Lymph % (Auto) [place] % (Auto) Eos % (Auto) Baso % (Auto) Neut # (Auto) Lymph # (Auto) [place] # (Auto) Eos # (Auto) Baso # (Auto) WBC Differential Differential Comment Sodium Potassium Chloride Carbon Dioxide Anion Gap BUN Creatinine Estimated GFR POC Glucose 111 H 109 Random Glucose Calcium Total Bilirubin AST ALT Alkaline Phosphatase Total Creatine Kinase 57 Troponin I Less than 0.02 L Total Protein Albumin 05/01/18 05/02/18 05/02/18 21:18 04:45 04:45 WBC 5.3 RBC 4.10 Hgb 13.1 Hct 39.3 MCV 95.7 MCH 31.9 MCHC 33.3 RDW 14.9 Plt Count 180 MPV 8.9 Neut % (Auto) 64.8 Lymph % (Auto) 19.1 [place] % (Auto) 9.4 H Eos % (Auto) 5.9 H Baso % (Auto) 0.8 Neut # (Auto) 3.4 Lymph # (Auto) 1.0 [place] # (Auto) 0.5 Eos # (Auto) 0.3 Baso # (Auto) 0.0 WBC Differential . Differential Comment Auto diff final Sodium 142 Potassium 3.4 L Chloride 104 Carbon Dioxide 28.3 Anion Gap 10 BUN 13 Creatinine 0.78 Estimated GFR 73 L POC Glucose 130 H Random Glucose 148 H Calcium 9.1 Total Bilirubin 2.1 H AST 121 H ALT 130 H Alkaline Phosphatase 116 Total Creatine Kinase Troponin I Total Protein 6.7 D Albumin 3.1 L D 05/02/18 08:03 WBC RBC Hgb Hct MCV MCH MCHC RDW Plt Count MPV Neut % (Auto) Lymph % (Auto) [place] % (Auto) Eos % (Auto) Baso % (Auto) Neut # (Auto) Lymph # (Auto) [place] # (Auto) Eos # (Auto) Baso # (Auto) WBC Differential Differential Comment Sodium Potassium Chloride Carbon Dioxide Anion Gap BUN Creatinine Estimated GFR POC Glucose 121 H Random Glucose Calcium Total Bilirubin AST ALT Alkaline Phosphatase Total Creatine Kinase Troponin I Total Protein Albumin - Imaging Impressions Cholangiopancreatography MRI 05/02/18 00:00 CONCLUSION: 1. Unremarkable examination in this patient who is status post cholecystectomy. The common bile duct measures approximately 1 cm which is most likely reservoir effect. No definite biliary tract obstruction is demonstrated. Assessment and Plan - Plan Patient is a 72-year-old female with past medical history of asthma, Hypertension, hyperlipidemia, diabetes newly diagnosed 3 weeks ago, reflex sympathetic dystrophy, presented to the emergency room with complaints of chest pain, nausea vomiting and diarrhea. Chest pain across her chest and back -CTA negative for PE. -Patient received a dose of aspirin and nitroglycerin and in the ED. continue aspirin daily. -Serial troponin has been negative. -Stress test today. If abnormal result will consult cardiology Abdominal pain/nausea/vomiting/diarrhea: CT abdomen pelvis was negative. -LFTs were found to be elevated and patient states that she had a cholecystectomy about 3 years ago. -AST 270, ALT 131, T bili 2.2. Originally from [place], states that when they were in [place] and have put her on Crestor her enzymes went up, she has the same exact presentation of nausea vomiting diarrhea. Recently her doctor put her on Zetia and she was doing well until few days of taking the medications that she has elevated liver enzymes, nausea vomiting. They also found she has diabetes. She has been borderline for a while and states that her PCP has been monitoring her cholesterol and her blood sugars and that she is actually going every 3 months for blood work. States that she was previously on medication for her cholesterol, sequestrant. But was transitioned to Zetia. States that her lipid profile has been okay but since she was diagnosed with diabetes 3 weeks ago her doctor put her on Zetia as a precaution for her cholesterol. -Will get a GI consult for further evaluation and recommendations. -Denies diarrhea since hospitalization -Repeat CMP. -Avoid hepatotoxins HLD -Will check lipid profile -Will hold Zetia for now DM 2 -Insulin sliding scale for now. Monitor Accu-Cheks DVT prop SCDs Code Status: Full Code Discussed Condition With: Patient, , nursing Discharge Planning: Plan to DC home when clinically improved
[2018-05-02] MEDS ORDERED: Regadenoson Inj 0.4 MG/5 ML Syringe IV.PUSH ONE (13:36)
--- NOTE | 2018-05-02 15:29 | NM ---
EXAM DATE: 05/02/2018 2:58 PM EDT AGE/SEX: 72 years / Female INDICATIONS:Angina. . Chest pain. CLINICAL DATA: This is the patient's initial encounter. Patient reports that signs and symptoms have been present for 2 days and indicates a pain score of 4/10. MEDICAL/SURGICAL HISTORY: Diabetes mellitus type II. Hypertension. Asthma. Cholecystectomy. Hysterectomy. Fusion, lumbar. COMPARISON: No prior exams available for comparison. DOSE: 25.9 mCi Tc 99m Myoview at rest 8.5 mCi [id number] at stress 0.4 mg Lexiscan STRESS SYMPTOMS: None noted. EJECTION FRACTION: 63 % TECHNIQUE: The patient underwent pharmacologic stress with infusion of prescribed dose. Continuous ECG tracing was monitored during stress. Gated SPECT imaging was performed after stress and conventi onal SPECT imaging was performed at rest. The examination was performed on a SPECT/CT scanner, both attenuation and non-corrected datasets were reviewed. FINDINGS: Distribution: The maximum perfused segment at stress is in the anterior wall. Perfusion Study: The pattern of perfusion at stress is within normal limits. Gated Study: There are intact wall motion and wall thickening without hypokinetic or dyskinetic segm ents. The ejection fraction is calculated at 63%. RISK CATEGORY: Low (<1% Annual Motality Rate) CONCLUSION: 1. Unremarkable myocardial perfusion examination. Electronically signed by: Bogdan Jay MD 05/02/2018 3:28 PM EDT
--- NOTE | 2018-05-02 16:09 | P.PNGI ---
Subjective Interval history: Pt resting in bed. States nauseous last night but no nausea or vomiting today. Denies abdominal pain. Diarrhea has resolved, pt has not had BM since day of admission when she was having diarrhea. <Whitney Lemos - Last Filed: 05/02/18 16:03> Physical Exam Vital signs: Vital Signs 05/01/18 16:24 05/01/18 18:18 05/01/18 20:00 Temperature 98.1 F 98.7 F Pulse Rate 84 84 Respiratory Rate 20 16 Blood Pressure 113/59 L 123/68 Pulse Oximetry 84 L 94 L 92 L 05/01/18 23:51 05/02/18 00:10 05/02/18 03:30 Temperature 98.8 F Pulse Rate 78 76 79 Respiratory Rate 16 Blood Pressure 104/56 L Pulse Oximetry 94 L 05/02/18 03:48 05/02/18 08:23 05/02/18 11:03 Temperature 98.7 F 97.9 F Pulse Rate 86 78 87 Respiratory Rate 16 14 Blood Pressure 116/62 132/65 Pulse Oximetry 93 L 95 05/02/18 12:10 Temperature 98.2 F Pulse Rate 88 Respiratory Rate 14 Blood Pressure 140/78 Pulse Oximetry 95 Intake & Output 05/01/18 05/02/18 05/02/18 18:59 06:59 18:59 Intake Total 200 / 200 480 / 480 Balance 200 / 200 480 / 480 Intake: Oral 200 / 200 480 / 480 Other: # Voids 2 - Constitutional no acute distress - Routine HEENT Exam Head: Present: normocephalic, atraumatic - Routine Respiratory Exam Present: CTA bilaterally. Absent: accessory muscle use - Routine Cardiovascular Exam Present: RRR - Routine Abdominal Exam Present: soft, normoactive bowel sounds. Absent: tenderness, distended, rebound , guarding <Whitney Lemos - Last Filed: 05/02/18 16:03> Vital signs: Vital Signs 05/01/18 20:00 05/01/18 23:51 05/02/18 00:10 Temperature 98.7 F 98.8 F Pulse Rate 84 78 76 Respiratory Rate 16 16 Blood Pressure 123/68 104/56 L Pulse Oximetry 92 L 94 L 05/02/18 03:30 05/02/18 03:48 05/02/18 08:23 Temperature 98.7 F 97.9 F Pulse Rate 79 86 78 Respiratory Rate 16 14 Blood Pressure 116/62 132/65 Pulse Oximetry 93 L 95 05/02/18 11:03 05/02/18 12:10 05/02/18 16:00 Temperature 98.2 F 98 F Pulse Rate 87 88 96 H Respiratory Rate 14 22 Blood Pressure 140/78 133/60 Pulse Oximetry 95 94 L Intake & Output 05/01/18 05/02/18 05/02/18 18:59 06:59 18:59 Intake Total 200 / 200 480 / 480 Balance 200 / 200 480 / 480 Intake: Oral 200 / 200 480 / 480 Other: # Voids 2 <Carol Tubbs - Last Filed: 05/02/18 18:29> Results - Labs CBC & Chem 7: 05/02/18 04:45 05/02/18 04:45 Laboratory Results - last 24 hr 05/01/18 05/01/18 05/02/18 17:13 21:18 04:45 WBC 5.3 RBC 4.10 Hgb 13.1 Hct 39.3 MCV 95.7 MCH 31.9 MCHC 33.3 RDW 14.9 Plt Count 180 MPV 8.9 Neut % (Auto) 64.8 Lymph % (Auto) 19.1 [place] % (Auto) 9.4 H Eos % (Auto) 5.9 H Baso % (Auto) 0.8 Neut # (Auto) 3.4 Lymph # (Auto) 1.0 [place] # (Auto) 0.5 Eos # (Auto) 0.3 Baso # (Auto) 0.0 WBC Differential . Differential Comment Auto diff final Sodium Potassium Chloride Carbon Dioxide Anion Gap BUN Creatinine Estimated GFR POC Glucose 109 130 H Random Glucose Calcium Total Bilirubin AST ALT Alkaline Phosphatase Total Protein Albumin 05/02/18 05/02/18 05/02/18 04:45 08:03 12:40 WBC RBC Hgb Hct MCV MCH MCHC RDW Plt Count MPV Neut % (Auto) Lymph % (Auto) [place] % (Auto) Eos % (Auto) Baso % (Auto) Neut # (Auto) Lymph # (Auto) [place] # (Auto) Eos # (Auto) Baso # (Auto) WBC Differential Differential Comment Sodium 142 Potassium 3.4 L Chloride 104 Carbon Dioxide 28.3 Anion Gap 10 BUN 13 Creatinine 0.78 Estimated GFR 73 L POC Glucose 121 H 79 Random Glucose 148 H Calcium 9.1 Total Bilirubin 2.1 H AST 121 H ALT 130 H Alkaline Phosphatase 116 Total Protein 6.7 D Albumin 3.1 L D - Imaging Impressions Cholangiopancreatography MRI 05/02/18 00:00 CONCLUSION: 1. Unremarkable examination in this patient who is status post cholecystectomy. The common bile duct measures approximately 1 cm which is most likely reservoir effect. No definite biliary tract obstruction is demonstrated. Myocardial Perfusion Scan Nuc Med 05/02/18 00:00 CONCLUSION: 1. Unremarkable myocardial perfusion examination. <Whitney Lemos - Last Filed: 05/02/18 16:03> - Labs CBC & Chem 7: 05/02/18 04:45 05/02/18 16:24 Laboratory Results - last 24 hr 05/01/18 05/02/18 05/02/18 21:18 04:45 04:45 WBC 5.3 RBC 4.10 Hgb 13.1 Hct 39.3 MCV 95.7 MCH 31.9 MCHC 33.3 RDW 14.9 Plt Count 180 MPV 8.9 Neut % (Auto) 64.8 Lymph % (Auto) 19.1 [place] % (Auto) 9.4 H Eos % (Auto) 5.9 H Baso % (Auto) 0.8 Neut # (Auto) 3.4 Lymph # (Auto) 1.0 [place] # (Auto) 0.5 Eos # (Auto) 0.3 Baso # (Auto) 0.0 WBC Differential . Differential Comment Auto diff final Sodium 142 Potassium 3.4 L Chloride 104 Carbon Dioxide 28.3 Anion Gap 10 BUN 13 Creatinine 0.78 Estimated GFR 73 L POC Glucose 130 H Random Glucose 148 H Calcium 9.1 Total Bilirubin 2.1 H AST 121 H ALT 130 H Alkaline Phosphatase 116 Total Protein 6.7 D Albumin 3.1 L D 05/02/18 05/02/18 05/02/18 08:03 12:40 16:24 WBC RBC Hgb Hct MCV MCH MCHC RDW Plt Count MPV Neut % (Auto) Lymph % (Auto) [place] % (Auto) Eos % (Auto) Baso % (Auto) Neut # (Auto) Lymph # (Auto) [place] # (Auto) Eos # (Auto) Baso # (Auto) WBC Differential Differential Comment Sodium 143 Potassium 3.5 Chloride 106 Carbon Dioxide 27.4 Anion Gap 10 BUN 14 Creatinine 0.73 Estimated GFR 79 L POC Glucose 121 H 79 Random Glucose 144 H Calcium 8.5 Total Bilirubin 1.2 H AST 106 H ALT 131 H Alkaline Phosphatase 123 H Total Protein 7.1 Albumin 3.5 - Imaging Impressions Cholangiopancreatography MRI 05/02/18 00:00 CONCLUSION: 1. Unremarkable examination in this patient who is status post cholecystectomy. The common bile duct measures approximately 1 cm which is most likely reservoir effect. No definite biliary tract obstruction is demonstrated. Myocardial Perfusion Scan Nuc Med 05/02/18 00:00 CONCLUSION: 1. Unremarkable myocardial perfusion examination. <Carol Tubbs - Last Filed: 05/02/18 18:29> Assessment and Plan (1) Elevated LFTs Status: Acute Code(s): R94.5 - Abnormal results of liver function studies (2) Nausea, vomiting, and diarrhea Status: Acute Code(s): R11.2 - Nausea with vomiting, unspecified; R19.7 - Diarrhea, unspecified - Plan - Nausea, vomiting, diarrhea/ abd pain- This started yesterday after eating a sandwich at lunch time. She had several episodes of emesis with no hematemesis. She severe abdominal pain yesterday but resolved. Endorses fever and chills. Endorses diarrhea as well but not melena or hematemesis. Pt is visiting here, was seen by her beam builder and under went several colonoscopies last yr for a polyp. She was told that she had IBS for which she takes probiotics. She drinks socially maybe a couple of drinks over the weekend but not on a regular basis. Pt with hx of choledocholithiasis discovered during cholecystectomy 3 yrs ago. On admission, AST 270, ALT 131, ALP 134, bilit 1.6. Lipase wnl. Hepatitis panel negative. CT abdomen and pelvis performed in the ED did not show any acute findings. CTA negative for PE - Diarrhea- stool studies pending, pt hasn't had any today - Hx of asthma, Hypertension, hyperlipidemia, newly diagnosed diabetes per attending (05/02) Pt with elevated LFTs on admission, has trended down some today. She reports history of this in the past 3-4 times, after starting new medications, especially Statins in the past. Previous episodes of LFTs have been accompanied by nausea, vomiting, diarrhea, chest pain which are the same symptoms she presented with during this admission. Pt has recently been started on Zetia and Glimepiride. Pt S/P cholecystectomy, MRCP done during admission --> Unremarkable, findings consistent with reservoir effect, no obstruction. Denies nausea and vomiting today, some last night. Denies any continued diarrhea, has not had BM since admission. Pt able to eat some solid foods today. Plan: - Avoid hepatotoxins - Monitor LFTs - Elevation likely secondary to new medications - Antiemetics PRN - Further recommendations based on clinical course Pt has been seen and examined by myself and Dr. Tubbs and this note is written on her behalf <Whitney Lemos - Last Filed: 05/02/18 16:03> (1) Elevated LFTs Status: Acute Code(s): R94.5 - Abnormal results of liver function studies (2) Nausea, vomiting, and diarrhea Status: Acute Code(s): R11.2 - Nausea with vomiting, unspecified; R19.7 - Diarrhea, unspecified - Attending Attestation lfts better egd can be done inpt vs op ok to dc home from [facility] if dc fu office 1-2 weeks <Carol Tubbs - Last Filed: 05/02/18 18:29> Attestation Attestation: seen, examined agree with above The exam, history, and the medical decision-making described in the above note were completed with the assistance of the mid-level provider. I reviewed and agree with the findings presented. I attest that I had a [id number] encounter with the patient on the same day, and personally performed and documented my assessment and findings in the medical record. <Carol Tubbs - Last Filed: 05/02/18 18:29>
[2018-05-02 17:10] LABS: Alanine Aminotransferase 131 U/L (10-53); Albumin 3.5 g/dL (3.4-5.0); Anion Gap 10 meq/L (5-15); Aspartate Aminotransferase 106 U/L (15-37); Blood Urea Nitrogen 14 mg/dL (7-18); Calcium 8.5 mg/dL (8.5-10.1); Carbon Dioxide 27.4 meq/L (21.0-32.0); Chloride 106 meq/L (98-107); Glomerular Filtration Rate 79 mL/min (>89); Glucose,Random 144 mg/dL (74-106); Potassium 3.5 meq/L (3.5-5.1); Sodium 143 meq/L (136-145)
[2018-05-02 17:12] LABS: Alkaline Phosphatase 123 U/L (45-117); Total Protein 7.1 g/dL (6.4-8.2)
--- NOTE | 2018-05-02 18:57 | P.DS ---
Date of admission: 05/01/18 01:35 Primary care physician: No Primary Care Physician Attending physician on discharge: Flor Loera Anticipated date of discharge: 05/02/18 Brief History from admission: Patient is a 72-year-old female with past medical history of asthma, Hypertension, hyperlipidemia, diabetes newly diagnosed 3 weeks ago, reflex sympathetic dystrophy, presented to the emergency room with complaints of chest pain, nausea vomiting and diarrhea. She states that she had a sandwich at lunch time yesterday and became very nauseous and threw up and then she experienced chest pain across her chest and back right after she ate. She denied any radiation to her jaw or arm. She vomited many times yesterday. Last night around 9 PM her chest pain stopped. She also describes chest pain as a pressure-like sensation however that has resolved. She still feels nauseous but did not vomit this morning. She also complained of terrible abdominal pain/cramping throughout. She had diarrhea about half a dozen of times. She tells me that she has recently seen her instrument mechanic for colonoscopy because a polyp was found and was removed and she has been having diarrhea on and off. She was told that she had a "sensitive colon" and takes probiotics. She drinks socially maybe a couple of drinks over the weekend but not on a regular basis. CT abdomen and pelvis performed in the ED did not show any acute findings. CTA negative for PE Past medical history: Asthma, Hypertension, hyperlipidemia, diabetes, reflex sympathetic dystrophy Past surgical history: Left lower lumbar sympathectomy, left meniscus repair 2 , bilateral cataract surgery 2 months ago, hysterectomy, cholecystectomy around 3 years ago Social history: Quit smoking at age 19, states that she was only a social smoker. She admits to drinking a couple drinks on weekends but not on a regular basis. Family history: Mother at age 95. She had dementia pacemaker placed. She had "all sorts of medical problems". Father had mesothelioma CODE STATUS: Full DS: Diagnosis - Discharge Diagnosis (1) Chest pain, rule out acute myocardial infarction Status: Acute (2) Nausea, vomiting, and diarrhea Status: Acute (3) Elevated LFTs Status: Acute DS: Summary Hospital Course: Patient is a 72-year-old female with past medical history of asthma, Hypertension, hyperlipidemia, diabetes newly diagnosed 3 weeks ago, reflex sympathetic dystrophy, presented to the emergency room with complaints of chest pain, nausea vomiting and diarrhea. Chest pain across her chest and back. CTA negative for PE. Patient received a dose of aspirin and nitroglycerin and in the ED. continue aspirin daily.Serial troponin has been negative. Stresses done EF 63% Unremarkable myocardial perfusion examination. She has diffuse abdominal pain with nausea, vomiting, diarrhea. CT of the abdomen and pelvis was negative. Notable LFTs were elevated patient states that she had a cholecystectomy about 3 years ago. Originally from [place], states that when they were in [place] and have put her on Crestor her enzymes went up, she has the same exact presentation of nausea vomiting diarrhea. Recently her doctor put her on Zetia and she was doing well until few days of taking the medications that she has elevated liver enzymes, nausea vomiting. They also found she has diabetes. She has been borderline for a while and states that her PCP has been monitoring her cholesterol and her blood sugars and that she is actually going every 3 months for blood work. States that she was previously on medication for her cholesterol, sequestrant. But was transitioned to Zetia. States that her lipid profile has been okay but since she was diagnosed with diabetes 3 weeks ago her doctor put her on Zetia as a precaution for her cholesterol. GI was consulted for further evaluation recommendation. Recommended EGD inpatient or outpatient. Patient prefers outpatient setting. She will follow-up with Dr. Riojas to and outpatient for planned EGD. When she was at the hospital her diarrhea has resolved. Repeat liver enzymes showed it is trending down. Discussed with patient to hold Septra for now. Repeat liver enzymes in a few days. Follow-up with PCP will also need to recheck her lipid profile. Continue with home medication use for her diabetes. Patient states she is a whole lot better, clinically improved. Patient has met maximal benefits of hospitalization. Clinically stable for discharge. - Time Spent with Patient Total time spent providing and/or coordinating discharge services: Less than 30 minutes - Quality: VTE Deep Vein Thrombosis/Pulmonary Embolism Present on Admission: No Exam Vital signs: Vital Signs 05/01/18 20:00 05/01/18 23:51 05/02/18 00:10 Temperature 98.7 F 98.8 F Pulse Rate 84 78 76 Respiratory Rate 16 16 Blood Pressure 123/68 104/56 L Pulse Oximetry 92 L 94 L 05/02/18 03:30 05/02/18 03:48 05/02/18 08:23 Temperature 98.7 F 97.9 F Pulse Rate 79 86 78 Respiratory Rate 16 14 Blood Pressure 116/62 132/65 Pulse Oximetry 93 L 95 05/02/18 11:03 05/02/18 12:10 05/02/18 16:00 Temperature 98.2 F 98 F Pulse Rate 87 88 96 H Respiratory Rate 14 22 Blood Pressure 140/78 133/60 Pulse Oximetry 95 94 L Intake & Output 05/01/18 05/02/18 05/02/18 18:59 06:59 18:59 Intake Total 200 / 200 480 / 480 500 / 500 Balance 200 / 200 480 / 480 500 / 500 Intake: Oral 200 / 200 480 / 480 500 / 500 Other: # Voids 2 Narrative: GENERAL: This is a well-nourished, well-developed patient, in no apparent distress. SKIN: Warm and dry. HEENT: Normocephalic. Pupils equal round and reactive. Nose without bleeding. Airway patent. NECK: Trachea midline. No JVD. Supple. CARDIOVASCULAR: Regular rate and rhythm without murmurs, gallops, or rubs. RESPIRATORY: Clear to auscultation. Breath sounds equal bilaterally. No wheezes , rales, or rhonchi. GASTROINTESTINAL: Abdomen soft, non-tender, nondistended. Bowel Sounds normoactive x4. MUSCULOSKELETAL: Extremities without clubbing, cyanosis, or edema. NEUROLOGICAL: Awake and alert. Oriented to time, place, person. No focal neuro deficit. Moves all extremities. Normal speech. Results Procedures completed during hospitalization: Stress test Completed studies during hospitalization: Stress Test Labs on day of discharge: Labs from last 24 hours 05/02/18 05/02/18 05/02/18 18:12 16:24 12:40 WBC RBC Hgb Hct MCV MCH MCHC RDW Plt Count MPV Neut % (Auto) Lymph % (Auto) Troup % (Auto) Eos % (Auto) Baso % (Auto) Neut # (Auto) Lymph # (Auto) Troup # (Auto) Eos # (Auto) Baso # (Auto) WBC Differential Differential Comment Sodium 143 Potassium 3.5 Chloride 106 Carbon Dioxide 27.4 Anion Gap 10 BUN 14 Creatinine 0.73 Estimated GFR 79 L POC Glucose 106 79 Random Glucose 144 H Calcium 8.5 Total Bilirubin 1.2 H AST 106 H ALT 131 H Alkaline Phosphatase 123 H Total Protein 7.1 Albumin 3.5 07/05/18 07/05/18 07/05/18 08:03 04:45 04:45 WBC 5.3 RBC 4.10 Hgb 13.1 Hct 39.3 MCV 95.7 MCH 31.9 MCHC 33.3 RDW 14.9 Plt Count 180 MPV 8.9 Neut % (Auto) 64.8 Lymph % (Auto) 19.1 Troup % (Auto) 9.4 H Eos % (Auto) 5.9 H Baso % (Auto) 0.8 Neut # (Auto) 3.4 Lymph # (Auto) 1.0 Troup # (Auto) 0.5 Eos # (Auto) 0.3 Baso # (Auto) 0.0 WBC Differential . Differential Comment Auto diff final Sodium 142 Potassium 3.4 L Chloride 104 Carbon Dioxide 28.3 Anion Gap 10 BUN 13 Creatinine 0.78 Estimated GFR 73 L POC Glucose 121 H Random Glucose 148 H Calcium 9.1 Total Bilirubin 2.1 H AST 121 H ALT 130 H Alkaline Phosphatase 116 Total Protein 6.7 D Albumin 3.1 L D 05/01/18 21:18 WBC RBC Hgb Hct MCV MCH MCHC RDW Plt Count MPV Neut % (Auto) Lymph % (Auto) Troup % (Auto) Eos % (Auto) Baso % (Auto) Neut # (Auto) Lymph # (Auto) Troup # (Auto) Eos # (Auto) Baso # (Auto) WBC Differential Differential Comment Sodium Potassium Chloride Carbon Dioxide Anion Gap BUN Creatinine Estimated GFR POC Glucose 130 H Random Glucose Calcium Total Bilirubin AST ALT Alkaline Phosphatase Total Protein Albumin - Impressions ITS Impressions Chest X-Ray 04/30/18 19:22 CONCLUSION: No acute cardiopulmonary disease. Chest CTA 04/30/18 22:20 CONCLUSION: 1. The study is negative for pulmonary embolism. Abdomen/Pelvis CT 04/30/18 22:21 CONCLUSION: 1. No acute findings in the abdomen/pelvis. Cholangiopancreatography MRI 05/02/18 00:00 CONCLUSION: 1. Unremarkable examination in this patient who is status post cholecystectomy. The common bile duct measures approximately 1 cm which is most likely reservoir effect. No definite biliary tract obstruction is demonstrated. Myocardial Perfusion Scan Nuc Med 05/02/18 00:00 CONCLUSION: 1. Unremarkable myocardial perfusion examination. Discharge Plan - Discharge Disposition Patient Disposition: 01 Discharge Home - Discharge Condition Condition: Good - Discharge Order Discharge Orders: Discharge Order (Routine); Ordered 05/02/18 Ordered By: Margarita Woo - Physicians Team Primary Care Provider: Primary Care Jennifer Puri Attending Provider: Flor Loera Other Providers: Carol Tubbs MD
== END 2018-05-02 19:35 | disposition home or self-care (01) ==
LOC: NEPE 18:17 → NEPGCP 18:17 → NEDA 05-01 01:01 → INTOOBSV 05-01 01:01 → NEPGCP 05-01 04:40
PROVIDERS: ADMIT Hospitalist; ATTEND Hospitalist